=== PATIENT | female | born 1975 | race Caucasian/White ===

== ENCOUNTER → 2016-08-28 | Day surgery (SDC) | payer OTHER ==
--- NOTE | 2016-08-27 14:11 | History & Physical Pre-Op ---
General Information and HPI History of Present Illness: 41yo s/p BTL with chronic menorrhagia admitted for Novasure ablation. Allergies/Medications Allergies: Coded Allergies: No Known Allergies (09/14/15) Home Med list Atorvastatin Calcium (Lipitor) 20 MG TABLET 1 TAB PO DAILY CHOLESTEROL ( Reported) Bupropion HCl (Wellbutrin XL) 300 MG TAB.ER.24H 1 TAB PO DAILY DEPRESSION ( Reported) Metformin HCl 500 MG TABLET 1 TAB PO BID DM (Reported) Pantoprazole Sodium (Protonix) 40 MG TABLET.DR 1 TAB PO DAILY GERD (Reported) Topiramate (Topamax) 50 MG TABLET 1 TAB PO QPM HEADACHE (Reported) Past History Medical History Neurological: NONE EENT: NONE Cardiovascular: NONE Respiratory: NONE Gastrointestinal: NONE Hepatic: NONE Renal: NONE Musculoskeletal: NONE Psychiatric: NONE Endocrine: NONE Blood Disorders: NONE Cancer(s): NONE 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 EENTM: Reports: no symptoms. Cardiovascular: Reports: no symptoms. Respiratory: Reports: no symptoms. GI: Reports: no symptoms. Genitourinary: Reports: see HPI. Musculoskeletal: Reports: no symptoms. Skin: Reports: no symptoms. Neurological/Psychological: Reports: no symptoms. Hematologic/Endocrine: Reports: no symptoms. Immunologic/Allergic: Reports: no symptoms. All Other Systems: Reviewed and Negative Exam & Diagnostic Data Last 24 Hrs of Vital Signs/I&O vss Physical Exam: HEENT: NCAT Chest: CTA CV: ml S1S2 Pelvic: deferred Oliver Ext: no c/c/e Assessment/Plan Assessment/Plan: menorrhagia D&C hysteroscopy, Novasure ablation As Ranked By This Provider Problem List: 1. Menorrhagia
[~2016-08-28] VITALS: Ht 162.6 cm; Wt 117.9 kg
[~2016-08-28] MED LIST: LIPITOR20 M2 PO; METFORMIN HCL500 M3 PO; NORFLEX100 MG PO; PROTONIX40 M3 PO; TOPAMAX50 M1 PO; VOLTAREN75 MG PO; WELLBUTRIN XL300 M2 PO
--- NOTE | 2016-09-03 08:13 | Operative Report ---
Operative/Inv Procedure Report Surgery Date: 08/28/16 Name of Procedure: D&C hysteroscopy and NovaSure ablation Pre-Operative Diagnosis: Menorrhagia Post-Operative Diagnosis: Same Estimated Blood Loss: scant Surgeon/Housekeeper/Custodian/Laundry Worker: SANDRA ADAMSON MD Anesthesia: laryngeal mask airway Operative/Procedure Note Note: The patient was brought to the operating room placed on the table in the supine position. She was given adequate anesthesia and successfully intubated with an LMA. She was repositioned into modified dorsal lithotomy prepped and draped in usual sterile fashion. A weighted speculum was inserted into the vagina and with the help of the Jackson retractor a single-toothed tenaculum was attached to the posterior lip of the cervix. Cervix appeared to be extremely tiny and the uterus was anteverted. Cervix was injected with 1% lidocaine to have cc in each quadrant. An endocervical curettage was then performed. The uterus was sounded to 8 cm. Cervix was then serially dilated to accommodate the hysteroscope. Hysteroscope was passed and no pathology was noted. The NovaSure was placed into the uterus the depth and width were measured and the ablation commenced at 170 W of power for 2 minutes. At the end of the procedure the instrument was removed intact leading was adequate and the patient was awakened and sent to recovery in good condition. All needle, sponge, and management counts were correct at the end of the procedure 2.
== END ==
LOC: STS 02:10
DX: N92.0 Excessive and frequent menstruation with regular cycle (principal); E11.9 Type 2 diabetes mellitus without complications; Z79.84 Long term (current) use of oral hypoglycemic drugs
CPT/HCPCS: 88305; J2250